=== PATIENT | male | born 1990 | race American Indian/Alaskan Native ===

== ENCOUNTER 2016-11-05 02:38 | Emergency (ER) | payer MEDICAID ==
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
[2016-11-05 05:31] VITALS: BP 133/78; PULSE 78; RESP 18; TEMP 97.8; O2SAT 99
--- NOTE | 2016-11-05 11:55 | RAD ---
PROCEDURE: Bilateral hand radiographs. HISTORY: fall COMPARISON: None. FINDINGS: BONES: Right Hand: No evidence of acute displaced fracture nor dislocation. Elliptical shaped an linear lucent changes seen within the distal margins of the 3rd 4th and 5th proximal phalanges of uncertain etiology though likely developmental. Left Hand: No evidence of acute displaced fracture nor dislocation. Small elliptical shaped and linear lucent changes seen within the distal aspect 4th proximal phalanx of uncertain the etiology though likely developmental JOINTS: Right Hand: Normal. Left Hand: Normal. SOFT TISSUES: Right Hand: Normal. Left Hand: Normal. OTHER FINDINGS: None. IMPRESSION: No acute fractures. See above discussion for additional findings and details.
== END 2016-11-05 05:38 | disposition home or self-care (01) ==
LOC: H.ER 02:38
DX: F10.129 Alcohol abuse with intoxication, unspecified (principal); S02.2XXA Fracture of nasal bones, initial encounter for closed fracture; S09.90XA Unspecified injury of head, initial encounter; S60.229A Contusion of unspecified hand, initial encounter; W19.XXXA Unspecified fall, initial encounter; Y92.89 Other specified places as the place of occurrence of the external cause